=== PATIENT | male | born 1970 | race Two or more races ===

== ENCOUNTER 2017-03-02 06:00 | Inpatient (IN) | payer MEDICARE ==
[2017-03-02 06:53] VITALS: BP 123/73
[2017-03-02] MEDS ORDERED: Morphine Sulfate 2 mg/mL 1mL Syr IVP PRN ×2 (07:31→07:46)
[2017-03-02] MEDS ORDERED: Magnesium Hydroxide (MOM) 30 mL UDC PO PRN (07:41)
[2017-03-02] MEDS ORDERED: Morphine Sulfate 4 mg/mL 1mL Syr IVP PRN (07:41)
[2017-03-02] MEDS ORDERED: Maalox 30 mL Cup PO PRN (07:41)
[2017-03-02] MEDS ORDERED: Hydrocodone/APAP 10 mg/325 mg Tab PO PRN (07:41)
[2017-03-02] MEDS ORDERED: D5-0.9%NS 1,000 ML IV SCH (07:45)
[2017-03-02] MEDS: Morphine Sulfate 2 mg/mL 1mL Syr IVP PRN ×3 (08:13→20:22)
[2017-03-02 09:49] LABS: ALKALINE PHOSPHATASE 67 U/L (34-104); ANION GAP 8.1 (7.0-16.0); BILIRUBIN,TOTAL 3.1 mg/dL (0.3-1.0); BUN - UREA NITROGEN 5 mg/dL (7-25); CALCIUM SERUM 7.6 mg/dL (8.6-10.3); CARBON DIOXIDE 22.8 mEq/L (21.0-31.0); CHLORIDE 110 mEq/L (98-107); CREATININE - SERUM 0.5 mg/dL (0.7-1.3); GLUCOSE 80 mg/dL (70-105); POTASSIUM SERUM 3.9 mEq/L (3.5-5.1); SGOT 194 U/L (13-39); SGPT/ALT 47 U/L (7-52); SODIUM SERUM 137 mEq/L (136-145)
[2017-03-02 09:51] LABS: HEMATOCRIT 27.6 % (39.0-49.0); HEMOGLOBIN 9.5 gm/dL (13.2-17.3); MEAN CORPUSCULAR HEMOGLOBIN 31.8 pg (26.0-30.0); MEAN CORPUSCULAR HGB CONC 34.5 pg (28.0-36.0); PLATELET COUNT 34 Th/cmm (150-400); RED CELL DISTRIBUTION WIDTH 17.3 % (11.5-20.0)
[2017-03-02 10:00] LABS: WHITE BLOOD COUNT 1.4 Th/cmm (4.8-10.8)
[2017-03-02 11:03] LABS: BAND NEUTROPHILE 2 % (0-10); EOSINOPHIL 3 % (0-5); NEUTROPHILS 52 % (40-80); PLATELET ESTIMATE DECREASED PLATELETS (NORMAL); TOTAL CELLS COUNTED 100
[2017-03-02 13:58] LABS: INR 1.4 (0.5-1.4); PROTHROMBIN TIME (TEST) 14.9 SECONDS (9.5-11.5)
--- NOTE | 2017-03-02 14:05 | Consultation ---
DATE OF CONSULTATION: 03/02/2017 GASTROENTEROLOGY CONSULTATION REQUESTING PHYSICIAN: Frankie Garcia M.D. REASON FOR CONSULTATION: Decompensated cirrhosis and GI bleeding. HISTORY OF PRESENT ILLNESS: A 47-year-old male, who presented to [facility] ER for right upper quadrant abdominal pain. He has a history of ongoing alcoholism for the past 30 years. His pain started about 3 weeks ago. He kept drinking alcohol for his pain. At [facility] ER, he had bad behavior and was kicked out. He then took a cab to [facility] where he was evaluated and eventually admitted. He was transferred here for his admission to this facility for insurance reasons. The patient also reports 3 days of hematemesis and coffee-ground emesis as well as melena. He has a history of variceal hemorrhage in the past requiring rubber band ligation lasting about 1-2 years ago at [facility]. PAST MEDICAL HISTORY: As above. The patient has a history of fluid overload or ascites for which he takes diuretics. He also takes lactulose for possible hepatic encephalopathy. PAST MEDICAL HISTORY: As above. MEDICATIONS: Here are Tylenol p.r.n., [place] p.r.n., Maalox p.r.n., IV fluids, Benadryl p.r.n., Ativan p.r.n., morphine p.r.n., Zofran p.r.n., Protonix 40 mg IV push q.12 hours. ALLERGIES: PENICILLIN. SOCIAL HISTORY: No tobacco, no drug use, positive alcohol. FAMILY HISTORY: No alcoholism. No history of GI malignancy. REVIEW OF SYSTEMS: A comprehensive 12-point review of system was conducted and is only positive for those signs and symptoms present in history of present illness. PHYSICAL EXAMINATION: VITAL SIGNS: Temperature 97.4, blood pressure is 123/73, pulse of 89, respirations 17, O2 sat 97%. GENERAL: The patient is well-developed, young male, in no acute distress. HEENT: Sclerae nonicteric. Oropharynx is clear. CARDIOVASCULAR: Regular rate and rhythm. LUNGS: Clear to auscultation bilaterally. ABDOMEN: Soft, nontender, nondistended. EXTREMITIES: No clubbing, cyanosis or edema. RECTAL: Deferred. LABORATORY DATA AND IMAGING: WBC 1.4, hemoglobin 9.5, platelet count is 34, creatinine is 0.5, bilirubin 3.1, AST 194, ALT 47, alkaline phosphatase 67, albumin is 2.5. IMPRESSION: 1. Upper gastrointestinal bleed, rule out esophageal or gastric varices, but more likely esophagitis and gastritis and less likely peptic ulcer disease. 2. History of alcoholic cirrhosis; rule out hepatitis C. 3. 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 4. History of cholecystectomy and right inguinal hernia repair. 5. History of ongoing alcohol dependence and intoxication. RECOMMENDATIONS: 1. Protonix. 2. Consider Sandostatin. 3. Upper endoscopy likely in the next couple of days pending or availability. The patient does not appear to be actively bleeding at this point. 4. Monitor hemoglobin, transfuse as necessary. 5. Alcohol rehabilitation and cessation, strongly advised. 6. Ativan. 7. Thiamine. Thank you, Dr. Frankie Garcia for involving us in the care of your patient. If you any further questions, please call us. [facility]# [id number]
[2017-03-02] MEDS: D5-0.9%NS 1,000 ML IV SCH (16:28)
[2017-03-03] MEDS: Morphine Sulfate 2 mg/mL 1mL Syr IVP PRN ×2 (00:44→08:04)
--- NOTE | 2017-03-03 03:58 | History & Physical ---
ADMIT DATE: 03/02/2017 CHIEF COMPLAINT: Abdominal pain. HISTORY OF PRESENT ILLNESS: The patient is a 47-year-old male who presented to [facility] with complaints of upper quadrant pain with radiation for right lower quadrant. The patient states he has pain for 7 weeks. The patient admitted to drinking. The patient took a cab from another ER to [facility] because he was kicked out from prior ER for poor behavior. The patient reports black tarry stools for 3 days and then vomiting blood. PAST MEDICAL HISTORY: Liver cirrhosis stage 4, melena, hematemesis and alcohol abuse. PAST SURGICAL HISTORY: Colectomy, inguinal hernia repair. MEDICATIONS: See medication reconciliation form. ALLERGIES: PENICILLIN. SOCIAL HISTORY: Positive for alcohol use. Denies IV drug use. Denies tobacco abuse. FAMILY HISTORY: Noncontributory. REVIEW OF SYSTEMS: See history of present illness. PHYSICAL EXAMINATION: GENERAL: The patient is awake, alert, nontoxic in appearance. VITAL SIGNS: On admission, temperature 97.4, pulse 89, blood pressure 123/73, respiratory rate 17, O2 sat 97% on room air. HEENT: Normocephalic, atraumatic. Extraocular movements intact. Oropharynx is clear. No scleral icterus. NECK: Supple, no thyromegaly, no lymphadenopathy. CARDIOVASCULAR: S1, S2. No murmurs, rubs or gallops. RESPIRATORY: Clear. No wheeze or rhonchi. GASTROINTESTINAL: Soft, nontender, nondistended. Positive bowel sounds. GENITOURINARY: No CVA tenderness, no suprapubic tenderness. Rectal examination done at [facility] shows stool guaiac positive. BACK: No midline tenderness. EXTREMITIES: Equal pulses bilaterally. No significant edema. SKIN: Negative. PSYCHIATRIC: Negative. NEUROLOGIC: Intact. Sensation is intact. Neurovascular is intact. LABORATORY DATA: Hematology: WBC 1.4, hemoglobin 9.5, hematocrit 27.6, platelet count 34. Chemistry: Sodium 137, potassium 3.9, chloride 110, bicarbonate 22, anion gap 8.1, BUN 5, creatinine 0.5. GFR is more than 60, glucose is 80, calcium 7.6, total bilirubin 3.1. AST is 194, ALT 47, alkaline phosphatase 57. Total protein 5.1, albumin 2.5, globulin 2.6. MICROBIOLOGY: No new microbiology results. IMPRESSION: 1. Gastrointestinal hemorrhage. 3. Liver sclerosis stage 4. 4. Melena. 5. Hematemesis. 6. Leukopenia. 7. Anemia. 8. Thrombocytopenia. 9. Pancytopenia. 10. Hypercalcemia. 11. Alcoholic hepatitis 12. Hypoalbuminemia. 13. Protein calorie malnutrition severe. PLAN: The patient admitted to medical/surgical unit at [facility]. We will obtain GI consultation. We will obtain Hematology consultation. Obtain further labs and consultation as needed. JOB# [id number] [facility]
[2017-03-03 07:02] LABS: INR 1.5 (0.5-1.4); PROTHROMBIN TIME (TEST) 15.9 SECONDS (9.5-11.5)
[2017-03-03 07:10] LABS: ALB/GLOB RATIO 0.9 (1.0-1.8); ALKALINE PHOSPHATASE 78 U/L (34-104); ANION GAP 6.2 (7.0-16.0); BILIRUBIN,DIRECT 1.29 mg/dL (0.0-0.2); BILIRUBIN,TOTAL 3.6 mg/dL (0.3-1.0); BUN - UREA NITROGEN 7 mg/dL (7-25); CALCIUM SERUM 7.9 mg/dL (8.6-10.3); CARBON DIOXIDE 25.7 mEq/L (21.0-31.0); CHLORIDE 107 mEq/L (98-107); CREATININE - SERUM 0.5 mg/dL (0.7-1.3); GLUCOSE 77 mg/dL (70-105); LDH = LACTIC DEHYDROGENASE 367 U/L (140-271); POTASSIUM SERUM 3.9 mEq/L (3.5-5.1); SGOT 184 U/L (13-39); SGPT/ALT 46 U/L (7-52); SODIUM SERUM 135 mEq/L (136-145)
[2017-03-03 07:46] LABS: HEMOGLOBIN 9.4 gm/dL (13.2-17.3); MEAN CELL VOLUME 93.5 fl (80-99); MEAN CORPUSCULAR HEMOGLOBIN 31.3 pg (26.0-30.0); MEAN CORPUSCULAR HGB CONC 33.4 pg (28.0-36.0); MEAN PLATELET VOLUME 9.3 fl; PLATELET COUNT 31 Th/cmm (150-400); RED BLOOD COUNT 2.99 Mil/cmm (4.30-5.70); RED CELL DISTRIBUTION WIDTH 16.8 % (11.5-20.0)
[2017-03-03 08:24] LABS: WHITE BLOOD COUNT 1.1 Th/cmm (4.8-10.8)
[2017-03-03 09:35] LABS: RBC RETICULOCYTE COUNT 2.99 Mil/cmm; RETICULOCYTES % COUNTED 1.5 % (0.5-1.5)
[2017-03-03] MEDS ORDERED: Morphine Sulfate 2 mg/mL 1mL Syr IVP ONE (10:15)
[2017-03-03] MEDS: Morphine Sulfate 4 mg/mL 1mL Syr IVP PRN ×3 (14:17→23:47)
[2017-03-04] MEDS: Morphine Sulfate 4 mg/mL 1mL Syr IVP PRN ×5 (04:31→21:06)
[2017-03-04 05:41] LABS: INR 1.52 (0.5-1.4); PROTHROMBIN TIME (TEST) 16.1 SECONDS (9.5-11.5)
[2017-03-04 05:45] LABS: ALKALINE PHOSPHATASE 79 U/L (34-104); ANION GAP 6.6 (7.0-16.0); BUN - UREA NITROGEN 7 mg/dL (7-25); CALCIUM SERUM 8.3 mg/dL (8.6-10.3); CARBON DIOXIDE 23.6 mEq/L (21.0-31.0); CHLORIDE 106 mEq/L (98-107); CREATININE - SERUM 0.5 mg/dL (0.7-1.3); GLUCOSE 68 mg/dL (70-105); POTASSIUM SERUM 4.2 mEq/L (3.5-5.1); SGOT 157 U/L (13-39); SGPT/ALT 42 U/L (7-52); SODIUM SERUM 132 mEq/L (136-145)
--- NOTE | 2017-03-04 05:52 | Progress Notes ---
DATE: 03/03/2017 SUBJECTIVE: The patient is awake and alert. The patient is on IV fluids. He still complaints of pain in the right upper quadrant and right lower quadrant area. The patient is scheduled for EGD tomorrow. OBJECTIVE: VITAL SIGNS: Temperature is 98.7, pulse of 76, blood pressure 162/70, respiratory rate 16 and O2 sat 98% on room. CARDIOVASCULAR: S1 and S2. RESPIRATORY: Clear. ABDOMEN: Soft, tender in the right upper quadrant and right lower quadrant area, nondistended, positive bowel sounds. LABORATORY DATA: Hematology: WBC 1.1, hemoglobin 9.4, hematocrit 28.0 and platelet count of 31, no left shift noted. PT 13.9, INR 1.5 and PTT 36.9. Chemistry: Sodium 135, potassium 3.9, chloride 107, bicarbonate 22, anion gap 6.2, BUN 7, creatinine 0.5, GFR is more than 60 and glucose is 77. Calcium is 7.9. Total bilirubin is 3.6, direct bilirubin is 0.29, AST is 184, ALT is 46, alkaline phosphatase is 78. LDH is 367, total protein is 5.1, albumin 2.4, globulin 2.7. MICROBIOLOGY: No new microbiology results. RADIOLOGY: No new radiology results. ASSESSMENT: 1. Leukopenia. 2. Anemia. 3. Thrombocytopenia. 4. Pancytopenia. 5. Hyponatremia. 6. Hypercalcemia. 7. Alcohol hepatitis. 8. Transaminitis. 9. Hyperlipidemia. 10. Protein-calorie malnutrition, severe. 11. Liver cirrhosis, stage 4. 12. Alcohol abuse. 13. Status post cholecystectomy. 14. Status post inguinal hernia repair. 15. Hematemesis. 16. Melena. 17. Gastrointestinal bleed. PLAN: Continue current medication and treatment. Obtain labs in a.m. The patient is scheduled for EGD in a.m. Further consult. JOB# [id number] [facility]
[2017-03-04 05:59] LABS: LIPASE < 3 U/L (11-82)
[2017-03-04 06:58] LABS: HEMOGLOBIN 9.7 gm/dL (13.2-17.3); MEAN CELL VOLUME 94.8 fl (80-99); MEAN CORPUSCULAR HEMOGLOBIN 31.7 pg (26.0-30.0); MEAN CORPUSCULAR HGB CONC 33.5 pg (28.0-36.0); NEUTROPHILE ABSOLUTE 0.6 Th/cmm (1.8-8.0); PLATELET COUNT 39 Th/cmm (150-400); RED BLOOD COUNT 3.06 Mil/cmm (4.30-5.70); RED CELL DISTRIBUTION WIDTH 17.5 % (11.5-20.0)
[2017-03-04 07:01] LABS: WHITE BLOOD COUNT 1.2 Th/cmm (4.8-10.8)
[2017-03-04] MEDS: D5-0.9%NS 1,000 ML IV SCH ×2 (12:14→12:35)
--- NOTE | 2017-03-04 12:47 | Diagnostic Imaging Report ---
Abdominal ultrasound HISTORY: Cirrhosis The liver exhibits a normal size. There is a somewhat heterogeneous hepatic parenchyma. No focal lesions. The finding should be correlated with liver function tests. The gallbladder is not seen consistent with the patient's surgical history. No biliary dilatation (common bile duct equals 3 mm). The pancreas cannot be seen due to bowel gas. The kidneys appear normal bilaterally. The spleen is markedly enlarged (21.0 cm length). No other definite retroperitoneal or intra-abdominal abnormalities. IMPRESSION: 1. Marked splenomegaly 2. Normal size liver with a heterogeneous parenchyma. The findings should be correlated with liver function tests. 3. Nonvisualization of the gallbladder consistent with the patient's surgical history.
[2017-03-05] MEDS: Morphine Sulfate 4 mg/mL 1mL Syr IVP PRN ×2 (01:35→05:59)
[2017-03-05] MEDS: D5-0.9%NS 1,000 ML IV SCH ×2 (01:37→23:36)
--- NOTE | 2017-03-05 02:11 | Progress Notes ---
DATE: 03/04/2017 SUBJECTIVE: The patient is awake, alert. The patient received transfusion ____. The patient waiting EGD today. OBJECTIVE: VITAL SIGNS: Temperature is 97.8, pulse 70, blood pressure 120/75, respirations 18, O2 sat 100% on room air. CARDIOVASCULAR: S1 and S2 is clear. ABDOMEN: Soft. Positive bowel sounds. LABORATORY DATA: Hematology: WBC of 1.2, hemoglobin 9.7, hematocrit 28.0, platelet count of 39. No left shift noted. PT 16.1, INR 1.52. Chemistry: Sodium 132, potassium 4.2, chloride 106, bicarb 23, anion of 6.6, BUN 7, creatinine 0.5. GFR is 160, glucose is 68, calcium 8.3, total bilirubin 4.0, AST is 157, ALT is 42, alkaline phosphatase 79, total protein 5.3, albumin 2.6, globulin 2.7 and lipase less than 3. RADIOLOGY: No new test results. ASSESSMENT: 1. Leukopenia. 2. Anemia. 3. Thrombocytopenia. 4. Pancytopenia. 5. Hyponatremia. 6. Hypercalcemia. 7. Alcoholic hepatitis. 8. Hypoalbuminemia. 9. ____ disease, [id number]. 10. Transaminitis. 11. Liver cirrhosis stage IV. 12. History of alcohol abuse. 13. Status post cholecystectomy. 14. Status post inguinal hernia repair. 15. Hematemesis, (resolved). 16. Melena, (resolved). 17. Gastrointestinal bleed. PLAN: Continue current medication and treatment. Obtain labs in a.m. The patient planned for EGD today. Further consult. JOB# [id number]
[2017-03-05 04:12] LABS: HEP B CORE IGM Negative (Negative); HEP C ANTIBODY 0.1 s/co ratio (0.0-0.9)
[2017-03-05 06:08] LABS: FOLIC ACID 10.3 ng/mL (>3.0)
[2017-03-05 07:02] LABS: HEMATOCRIT 27.4 % (39.0-49.0); HEMOGLOBIN 9.3 gm/dL (13.2-17.3); MEAN CELL VOLUME 92.1 fl (80-99); MEAN CORPUSCULAR HEMOGLOBIN 31.3 pg (26.0-30.0); MEAN PLATELET VOLUME 8.9 fl; PLATELET COUNT 32 Th/cmm (150-400); RED BLOOD COUNT 2.98 Mil/cmm (4.30-5.70); RED CELL DISTRIBUTION WIDTH 16.9 % (11.5-20.0)
[2017-03-05 07:19] LABS: ALKALINE PHOSPHATASE 86 U/L (34-104); ANION GAP 7.3 (7.0-16.0); BILIRUBIN,TOTAL 2.4 mg/dL (0.3-1.0); BUN - UREA NITROGEN 9 mg/dL (7-25); CALCIUM SERUM 8.1 mg/dL (8.6-10.3); CARBON DIOXIDE 22.7 mEq/L (21.0-31.0); CHLORIDE 109 mEq/L (98-107); CREATININE - SERUM 0.5 mg/dL (0.7-1.3); GLUCOSE 91 mg/dL (70-105); SGOT 117 U/L (13-39); SGPT/ALT 37 U/L (7-52); SODIUM SERUM 135 mEq/L (136-145)
[2017-03-05 08:16] LABS: WHITE BLOOD COUNT 0.9 Th/cmm (4.8-10.8)
[2017-03-05 09:14] LABS: HEMATOCRIT 27.4 % (33.0-45.0); RBC RETICULOCYTE COUNT 2.98 Mil/cmm; RETICULOCYTES % COUNTED 0.8 % (0.5-1.5)
[2017-03-05] MEDS: Morphine Sulfate 2 mg/mL 1mL Syr IVP PRN ×3 (14:06→22:10)
[2017-03-06] MEDS: Morphine Sulfate 2 mg/mL 1mL Syr IVP PRN ×3 (02:55→20:39)
--- NOTE | 2017-03-06 03:43 | Admit Criteria Form ---
Admit Criteria Forms - Admit Criteria Diagnosis: GASTROINTESTINAL BLEEDING Clinical Indications for Inpatient Care (Place 'X' for any and all applicable criteria): Ongoing inpatient care may be indicated for gastrointestinal bleeding with ANY ONE of the following (4)(20)(21)(22)(23)(24): [ ]I. Active bleeding (eg, fresh voluminous blood in emesis or nasogastric aspirate, or per rectum) [ ]II. Hemodynamic instability [ ]III. Anticoagulation therapy or coagulopathy ((eg, advanced liver disease, irreversible anticoagulation) [ ]IV. Ischemic colitis (22) [ ]V. Endoscopy showing arterial bleeding, adherent clot, nonbleeding visible vessel, varices, flat red spots, ulcer size greater than 2 cm, or portal hypertensive gastropathy [ ]. High-risk low platelet count [ ]VII. Anemia requiring inpatient care as indicated by ANY ONE of the following a)[ ] Cognitive impairment b)[ ] Syncope c)[ ] Heart failure d)[ ] Chest pain e)[ ] Dyspnea f)[ ] Other findings suggesting inadequate perfusion (eg, peripheral or myocardial ischemia, end organ dysfunction) [ ]VIII. High-risk low platelet count [X ]IX. Suspected variceal cause of bleeding as indicated by ANY ONE of the following(27)(28): a)[ ] Known varices b)[X ] Hepatomegaly or splenomegaly c)[ ] Ascites d)[ ] Jaundice or scleral icterus e)[X ] History of liver disease (eg, cirrhosis) f)[ ] Physical findings of portal hypertension (eg, caput medusa) g)[ ] Comorbid disorder indicating risk for portal vein thrombosis (eg , abdominal surgery, sepsis, shock, exchange transfusion, prior umbilical vein catheterization) Extended stay may be needed until ALL of the following are present(20)(23)(47): [ ]a) Hemodynamic stability [ ]b) No evidence of active bleeding (eg, stable Hematocrit) [ ]c) Platelet count, prothrombin time, and partial thromboplastin time acceptable for next level of care [ ]d) Surgical or other acute intervention not needed [ ]e) Oral hydration and diet tolerated The original [employer] [facility] [facility] [employer] content created by [employer] has been revised. The portions of the content which have been revised are identified through the use of italic text or in bold, and [facility] has neither reviewed nor approved the modified material. All other unmodified content is copyright [facility]. Please see references footnoted in the original [facility] edition 2016 Admit Criteria Met?: Yes
[2017-03-06 07:11] LABS: RED BLOOD COUNT 2.92 Mil/cmm (4.30-5.70)
[2017-03-06 07:20] LABS: HEMATOCRIT 27.3 % (39.0-49.0); HEMOGLOBIN 9.2 gm/dL (13.2-17.3); MEAN CELL VOLUME 93.7 fl (80-99); MEAN CORPUSCULAR HEMOGLOBIN 31.4 pg (26.0-30.0); MEAN CORPUSCULAR HGB CONC 33.5 pg (28.0-36.0); MEAN PLATELET VOLUME 8.7 fl; PLATELET COUNT 36 Th/cmm (150-400); RED CELL DISTRIBUTION WIDTH 17.5 % (11.5-20.0)
[2017-03-06 07:26] LABS: INR 1.59 (0.5-1.4); PROTHROMBIN TIME (TEST) 16.9 SECONDS (9.5-11.5)
[2017-03-06 07:39] LABS: ALB/GLOB RATIO 0.9 (1.0-1.8); ALKALINE PHOSPHATASE 74 U/L (34-104); ANION GAP 6.8 (7.0-16.0); BILIRUBIN,DIRECT 0.96 mg/dL (0.0-0.2); BILIRUBIN,TOTAL 2.6 mg/dL (0.3-1.0); BUN - UREA NITROGEN 6 mg/dL (7-25); CALCIUM SERUM 8.2 mg/dL (8.6-10.3); CARBON DIOXIDE 21.9 mEq/L (21.0-31.0); CHLORIDE 111 mEq/L (98-107); CREATININE - SERUM 0.4 mg/dL (0.7-1.3); GLUCOSE 93 mg/dL (70-105); POTASSIUM SERUM 3.7 mEq/L (3.5-5.1); SGOT 93 U/L (13-39); SGPT/ALT 32 U/L (7-52); SODIUM SERUM 136 mEq/L (136-145)
[2017-03-06] MEDS ORDERED: Probiotic Screen MC PRN (09:19)
[2017-03-06 09:40] LABS: NEUTROPHILS 46 % (40-80)
[2017-03-06 09:41] LABS: EOSINOPHIL 9 % (0-5); PLATELET ESTIMATE DECREASED PLATELETS (NORMAL)
[2017-03-06] MEDS: D5-0.9%NS 1,000 ML IV SCH ×3 (10:32→20:39)
[2017-03-07] MEDS: Morphine Sulfate 4 mg/mL 1mL Syr IVP PRN ×3 (00:52→09:12)
[2017-03-07 05:51] LABS: HEMATOCRIT 27.1 % (39.0-49.0); HEMOGLOBIN 9.2 gm/dL (13.2-17.3); MEAN CELL VOLUME 93.2 fl (80-99); MEAN CORPUSCULAR HEMOGLOBIN 31.7 pg (26.0-30.0); MEAN PLATELET VOLUME 7.8 fl; RED BLOOD COUNT 2.91 Mil/cmm (4.30-5.70)
[2017-03-07 06:14] LABS: WHITE BLOOD COUNT 1.3 Th/cmm (4.8-10.8)
[2017-03-07 06:22] LABS: ALB/GLOB RATIO 0.9 (1.0-1.8); ALKALINE PHOSPHATASE 77 U/L (34-104); ANION GAP 6.2 (7.0-16.0); BILIRUBIN,TOTAL 3.1 mg/dL (0.3-1.0); BUN - UREA NITROGEN 5 mg/dL (7-25); CARBON DIOXIDE 23.3 mEq/L (21.0-31.0); CHLORIDE 111 mEq/L (98-107); CREATININE - SERUM 0.5 mg/dL (0.7-1.3); GLUCOSE 83 mg/dL (70-105); POTASSIUM SERUM 3.5 mEq/L (3.5-5.1); SGOT 82 U/L (13-39); SGPT/ALT 32 U/L (7-52); SODIUM SERUM 137 mEq/L (136-145)
--- NOTE | 2017-03-07 07:44 | Progress Notes ---
DATE: 03/05/2017 SUBJECTIVE: The patient is awake, alert. The patient is on IV fluids. OBJECTIVE: VITAL SIGNS: Temperature is 97, pulse 86, blood pressure 130/70, respirations 18, pulse ox 98% on room air. CARDIOVASCULAR: S1 and S2. RESPIRATORY: Clear. GASTROINTESTINAL: Abdomen is soft. Positive bowel sounds. LABORATORY DATA: Hematology: WBC is 0.9, hemoglobin is 9.3, hematocrit 27.4, platelet count of 232. Chemistry: Sodium 135, potassium ____, bicarbonate 22, anion gap 7.3, BUN 9, creatinine 0.5. GFR is more than 60, glucose is 91, calcium 8.1, total bilirubin 2.4. AST is 117, ALT 37, alkaline phosphatase 86. Total protein 4.9, albumin 2.4, globulin 2.5. AFP tumor marker 2.2, CA 5.6. ASSESSMENT: 1. Leukopenia. 2. Anemia. 3. Thrombocytopenia. 4. Pancytopenia. 5. Alcoholic hepatitis. 6. Protein-calorie malnutrition, owiruexb-[id number]. 7. Transaminitis. 8. Liver cirrhosis, stage 4. 9. History of alcohol abuse. 10. Status post cholecystectomy. 11. Status post inguinal hernia repair. 12. Hematemesis, resolved. 13. Melena, resolved. 14. Gastrointestinal bleed. 15. Portal hypertension. 16. Possible alcoholic ____. PLAN: EGD on hold. Recommendation from Hematology, the patient may require bone marrow biopsy. The patient ____ decreased density of liver. Thank you very much. JOB# [id number]
[2017-03-07 08:08] LABS: EOSINOPHIL 7 % (0-5); NEUTROPHILS 67 % (40-80); TOTAL CELLS COUNTED 100
[2017-03-07 08:09] LABS: PLATELET ESTIMATE DECREASED PLATELETS (NORMAL)
[2017-03-07] MEDS: D5-0.9%NS 1,000 ML IV SCH (09:13)
[2017-03-07] MEDS: Lactobacillus Rhamnosus 10 Billion CFU Capsule PO SCH (09:13)
--- NOTE | 2017-03-07 11:02 | Progress Notes ---
DATE: 03/06/2017 SUBJECTIVE: The patient is awake, alert. The patient's EGD is on hold due to pancytopenia. The patient ordered for CT-guided biopsy regarding possible occult neurotoxicity. OBJECTIVE: VITAL SIGNS: Temperature 97.6, pulse 73, blood pressure 149/76, respiratory rate 18, O2 sat 98% on room air. CARDIOVASCULAR: S1 and S2. RESPIRATORY: Clear. GASTROINTESTINAL: Soft. Positive bowel sounds. LABORATORY DATA: Hematology: WBC 1.0, hemoglobin 9.2, hematocrit 27.3, platelet count 36. PT 16.9, INR 1.59, PTT 37.4. Chemistries: Sodium 136, potassium 3.7, chloride 111, bicarbonate 21, anion gap 6.8, BUN 6, creatinine 0.4, GFR is more than 60, glucose 93, calcium 8.2, total bilirubin 2.6, direct bilirubin 0.96. AST 93, ALT 32, alkaline phosphatase 74, total protein 4.7, albumin 2.2, globulin 2.5. ASSESSMENT: 1. Leukopenia. 2. Anemia. 3. Thrombocytopenia. 4. Pancytopenia. 5. Hypocalcemia. 6. Alcoholic hepatitis. 7. Transaminitis. 8. Hypoalbuminemia. 9. Protein calorie malnutrition, severe. 10. Liver cirrhosis stage IV. 11. History of alcohol abuse. 12. Status post ____ inguinal hernia repair. 13. Hematemesis, resolved. 14. Melena, (resolved). 15. Gastrointestinal bleed. 16. Possible occult neurotoxicity. PLAN: Continue current medication and treatment. Obtain labs in a.m. Awaiting CT-guided biopsy results. Further consults. The patient will also require EGD. JOB# [id number]
[2017-03-07] MEDS: Morphine Sulfate 2 mg/mL 1mL Syr IVP PRN ×3 (13:09→22:05)
[2017-03-07 20:02] LABS: PLATELET COUNT 31 Th/cmm (150-400)
[2017-03-07] MEDS ORDERED: Lactulose 10 Gm/15 mL 30mL UDC PO PRN (20:46)
[2017-03-08] MEDS: Morphine Sulfate 2 mg/mL 1mL Syr IVP PRN (02:06)
[2017-03-08 05:44] LABS: HEMOGLOBIN 9.1 gm/dL (13.2-17.3); MEAN CELL VOLUME 92.8 fl (80-99); MEAN CORPUSCULAR HEMOGLOBIN 31.2 pg (26.0-30.0); MEAN CORPUSCULAR HGB CONC 33.7 pg (28.0-36.0); MEAN PLATELET VOLUME 8.6 fl; RED BLOOD COUNT 2.91 Mil/cmm (4.30-5.70); RED CELL DISTRIBUTION WIDTH 17.8 % (11.5-20.0)
[2017-03-08 06:07] LABS: ALB/GLOB RATIO 0.9 (1.0-1.8); ALKALINE PHOSPHATASE 74 U/L (34-104); BILIRUBIN,TOTAL 2.6 mg/dL (0.3-1.0); BUN - UREA NITROGEN 6 mg/dL (7-25); CALCIUM SERUM 7.9 mg/dL (8.6-10.3); CARBON DIOXIDE 23.8 mEq/L (21.0-31.0); CHLORIDE 112 mEq/L (98-107); CREATININE - SERUM 0.5 mg/dL (0.7-1.3); GLUCOSE 95 mg/dL (70-105); POTASSIUM SERUM 3.8 mEq/L (3.5-5.1); SGOT 72 U/L (13-39); SGPT/ALT 29 U/L (7-52); SODIUM SERUM 137 mEq/L (136-145)
[2017-03-08] MEDS: Morphine Sulfate 4 mg/mL 1mL Syr IVP PRN (06:31)
[2017-03-08] MEDS: D5-0.9%NS 1,000 ML IV SCH (06:32)
[2017-03-08 06:33] LABS: PLATELET COUNT 30 Th/cmm (150-400); WHITE BLOOD COUNT 1.3 Th/cmm (4.8-10.8)
[2017-03-08] MEDS: Lactobacillus Rhamnosus 10 Billion CFU Capsule PO SCH (08:37)
[2017-03-08 09:06] LABS: EOSINOPHIL 6 % (0-5); NEUTROPHILS 58 % (40-80); TOTAL CELLS COUNTED 100
[2017-03-08 09:07] LABS: PLATELET ESTIMATE DECREASED PLATELETS (NORMAL); PLATELET MORPHOLOGY NORMAL (NORMAL)
--- NOTE | 2017-03-08 20:15 | Progress Notes ---
DATE: 03/07/2017 SUBJECTIVE: The patient is awake, alert. The patient is on IV fluids. The patient is on IVP medication. Unable to view CT-guided bone marrow biopsy. OBJECTIVE: VITAL SIGNS: Temperature is 98.4, pulse of 84, blood pressure 138/86, respiratory rate 18 and O2 sat 98% on room. CARDIOVASCULAR: S1 and S2. RESPIRATORY: Clear. ABDOMEN: Soft, positive bowel sounds. LABORATORY DATA: Hematology: WBC 1.3, hemoglobin 9.2, hematocrit 27.1 and platelet count unknown. Chemistry: Sodium 137, potassium 3.5, chloride ____, bicarbonate 23.3, anion gap 6.2, BUN 5, creatinine 0.5, GFR is more than 60. Calcium is 8.0. Total bilirubin is 3.1. AST is 82, ALT is 32, alkaline phosphatase 77, total protein is 5.0, albumin 2.4, globulin 2.6. MICROBIOLOGY: No new microbiology results. ASSESSMENT: 1. Leukopenia. 2. Anemia. 3. Thrombocytopenia. 4. Pancytopenia. 5. Hypercalcemia. 6. Alcoholic hepatitis. 7. Transaminitis. 8. Hypoalbuminemia. 9. Protein-calorie malnutrition (jvlrzqar-aq-saspoa). 10. Liver cirrhosis, stage 4. 11. Alcohol abuse. 12. Status post inguinal hernia repair. 13. Hematemesis, resolved. 14. Melena, resolved. 15. Gastrointestinal bleed. 16. Possible alcoholic marrow toxicity. 17. Portal hypertension. PLAN: Continue current medication and treatment. Obtain labs in a.m. The patient will require CT-guided bone marrow biopsy. The patient will also require EGD. salary manager to arrange for transfer to ____ facility. JOB# [id number]
--- NOTE | 2017-03-09 04:49 | Progress Notes ---
DATE: 03/08/2017 SUBJECTIVE: The patient is awake, alert. Dull pain. The patient is on IV fluids. OBJECTIVE: VITAL SIGNS: Temperature is 97.9, pulse 77, blood pressure 124/78, respirations 19, O2 sat 96% on room air. CARDIOVASCULAR: S1 and S2. RESPIRATORY: Clear. GASTROINTESTINAL: Abdomen is soft. Positive bowel sounds. LABORATORY DATA: Hematology: WBC is 1.3, hemoglobin is 9.1, hematocrit 27.1, platelet count of 230. Chemistry: Sodium 137, potassium 3.8, chloride 112, bicarbonate 23, anion gap 5, BUN 6, creatinine 0.3. GFR is more than 60, glucose is 95, calcium 7.9, total bilirubin 2.6. AST is 72, ALT 29, alkaline phosphatase 74, amylase 88. Total protein 4.8, albumin 2.2, globulin 2.6. MICROBIOLOGY: No new microbiology results. ASSESSMENT: 1. Leukopenia. 2. Anemia. 3. Thrombocytopenia. 4. Pancytopenia. 5. Hypercalcemia. 6. Transaminitis. 7. Hypoalbuminemia. 8. Protein-calorie malnutrition, severe. 9. Liver cirrhosis, stage 4. 10. Alcohol abuse. 11. Status post inguinal hernia repair. 12. Hematemesis, resolved. 13. Melena, resolved. 14. History of gastrointestinal bleed. 15. Possible alcoholic marrow toxicity. PLAN: Continue current medication and treatment. ____ planning. Per discussion with Hematology and Oncology, the patient can be discharged and follow up as outpatient. JOB# [id number]
== END 2017-03-08 10:30 | disposition home or self-care (01) | DRG 377 ==
LOC: MSI 06:00
PROVIDERS: ADMIT Preventive Medicine Preventive Medicine/Occupational Environmental Medicine; ATTEND Preventive Medicine Preventive Medicine/Occupational Environmental Medicine
PROC: 30233R1 Transfusion of Nonautologous Platelets into Peripheral Vein, Percutaneous Approach (ICD-10-PCS; principal; 2017-03-03)
DX: K92.2 Gastrointestinal hemorrhage, unspecified (principal); E43 Unspecified severe protein-calorie malnutrition; D61.818 Other pancytopenia; E87.0 Hyperosmolality and hypernatremia; K76.6 Portal hypertension; E88.09 Other disorders of plasma-protein metabolism, not elsewhere classified; E83.52 Hypercalcemia; K70.10 Alcoholic hepatitis without ascites; K74.1 Hepatic sclerosis; D72.819 Decreased white blood cell count, unspecified; D64.9 Anemia, unspecified; F10.20 Alcohol dependence, uncomplicated; K74.60 Unspecified cirrhosis of liver; D72.829 Elevated white blood cell count, unspecified; R74.0 Nonspecific elevation of levels of transaminase and lactic acid dehydrogenase [LDH]; Z68.28 Body mass index [BMI] 28.0-28.9, adult; Z88.0 Allergy status to penicillin; Z90.49 Acquired absence of other specified parts of digestive tract; Z71.41 Alcohol abuse counseling and surveillance of alcoholic
CPT/HCPCS: 36415-UA; 76700-TC; 80053-TC; 80074-90; 82105-90; 82140-TC; 82248-TC; 82378-90; 82607-90; 82728-90; 82746-90; 83010-90; 83540-90; 83550-90; 83615-TC; 83690-TC; 85007-TC; 85025-TC; 85027-TC; 85044-TC; 85049-TC; 85379-TC; 85384-TC; 85610-TC; 85730-TC; 86301-90; 86850-TC; 86880-TC; 86900-TC; 86901-TC; 88305-90; 93005; C9113; J1200; J2270; J3430; J7042; P9035

== ENCOUNTER 2017-09-20 15:15 | Emergency (ER) | payer MEDICARE, MEDICAID ==
--- NOTE | 2017-09-20 15:49 | ED Physician Chart ---
ED Chief Complaint/HPI - Patient Information Date Seen:: 09/20/17 Time Seen:: 15:48 Chief Complaint:: RUQ abdominal pain and dizziness History of Present Illness:: 47 yo male had sudden onset of RUQ sharp abdominal pain and dizziness 2 hours ago. It was constant, stabbing pain, worsened by deep breathing. No nausea or vomiting. Patient had liver cirrhosis, stage IV, secondary to alcohol ingestion. Last drank beer 3 hours ago. Allergies:: Allergies Allergy/AdvReac Type Severity Reaction Status Date / Time Penicillins Allergy Unknown HIVES Verified 03/02/17 06:53 Vitals:: Vital Signs - 8 hr 09/20/17 15:15 Temp 98.2 F HR 96 RR 19 BP 122/44 O2 Sat % 99 ED Review of Systems - Review of Systems General/Constitutional: No fever Skin: Skin lesions Head: No headache Eyes: No pain ENT: No nasal drainage Neck: No neck pain Cardio Vascular: Chest pain Pulmonary: No SOB GI: No nausea, No vomiting, Pain (RUQ pain) Musculoskeletal: No bone or joint pain Neurological: No focal symptoms, Dizziness ED Past Medical History - Past Medical History Past Medical History: Other (cirrhosis) Social History: Non Smoker, Alcohol, No Drug Use Surgical History: Cholecystectomy, Hernia (Right inguinal hernia repair) Family Medical History - Family Member Mother History Unknown: Yes ED Physical Exam - Physical Examination General/Constitutional: Awake, Alert Head: Atraumatic Eyes: PERRL ENMT: Nasal exam nl Neck: No nuchal rigidity Respiratory: Clear to Auscultation, No Wheeze/Rhonchi/Rales Cardio Vascular: RRR, No murmur, gallop, rubs, NL S1 S2 Other GI comments:: RUQ tenderness, RLQ tenderness. Left flank and abdomen ecchymosis Other comments:: Right CVA tenderness Extremities: normal strength in all extremities Neuro/Psych: No focal deficits ED Labs/Radiology/EKG Results - Lab Results Results: Laboratory Last Values WBC 2.3 Th/cmm (4.8-10.8) L* 09/20/17 16:20 RBC 3.56 Mil/cmm (4.30-5.70) L 09/20/17 16:20 Hgb 10.1 gm/dL (12-16) L 09/20/17 16:20 Hct 31.0 % (41.0-60) L 09/20/17 16:20 MCV 86.9 fl (80-99) 09/20/17 16:20 MCH 28.3 pg (26.0-30.0) 09/20/17 16:20 MCHC Differential 32.6 pg (28.0-36.0) 09/20/17 16:20 RDW 18.7 % (11.5-20.0) 09/20/17 16:20 Plt Count 59 Th/cmm (150-400) L 09/20/17 16:20 MPV 7.1 fl 09/20/17 16:20 Neutrophils % 65.2 % (40.0-80.0) 09/20/17 16:20 Lymphocytes % 21.8 % (20.0-50.0) 09/20/17 16:20 Monocytes % 9.0 % (2.0-10.0) 09/20/17 16:20 Eosinophils % 4.0 % (0.0-5.0) 09/20/17 16:20 Basophils % 0.0 % (0.0-2.0) 09/20/17 16:20 PT 16.1 SECONDS (9.5-11.5) H 09/20/17 16:20 INR 1.52 (0.5-1.4) H 09/20/17 16:20 PTT (Actin FS) 37.0 SECONDS (26.0-38.0) 09/20/17 16:20 D-Dimer 133 ng/mL (100-400) 09/20/17 16:20 Sodium 141 mEq/L (136-145) 09/20/17 16:20 Potassium 3.6 mEq/L (3.5-5.1) 09/20/17 16:20 Chloride 113 mEq/L (98-107) H 09/20/17 16:20 Carbon Dioxide 18.4 mEq/L (21.0-31.0) L 09/20/17 16:20 Anion Gap 13.2 (7.0-16.0) 09/20/17 16:20 BUN 10 mg/dL (7-25) 09/20/17 16:20 Creatinine 0.5 mg/dL (0.7-1.3) L 09/20/17 16:20 Est GFR ( Amer) > 60.0 ml/min (>90) 09/20/17 16:20 Est GFR (Non-Af Amer) > 60.0 ml/min 09/20/17 16:20 BUN/Creatinine Ratio 20.0 09/20/17 16:20 Glucose 82 mg/dL (70-105) 09/20/17 16:20 Whole Bld Lactic Acid 2.00 mmol/L (0.60-1.99) H 09/20/17 18:40 Calcium 8.6 mg/dL (8.6-10.3) 09/20/17 16:20 Total Bilirubin 3.3 mg/dL (0.3-1.0) H 09/20/17 16:20 AST 94 U/L (13-39) H 09/20/17 16:20 ALT 41 U/L (7-52) 09/20/17 16:20 Alkaline Phosphatase 83 U/L (34-104) 09/20/17 16:20 Ammonia 68 umol/L (16-53) H 09/20/17 16:20 Total Protein 5.3 gm/dL (6.0-8.3) L 09/20/17 16:20 Albumin 2.8 gm/dL (4.2-5.5) L 09/20/17 16:20 Globulin 2.5 gm/dL 09/20/17 16:20 Albumin/Globulin Ratio 1.1 (1.0-1.8) 09/20/17 16:20 Amylase 103 U/L (29-103) 09/20/17 16:20 Lipase 11 U/L (11-82) 09/20/17 16:20 Urine Source RANDOM 09/20/17 18:00 Urine Color YELLOW 09/20/17 18:00 Urine Clarity CLEAR (CLEAR) 09/20/17 18:00 Urine pH 5.5 (4.6 - 8.0) 09/20/17 18:00 Ur Specific [facility] >= 1.030 (1.005-1.030) 09/20/17 18:00 Urine Protein 30 mg/dL (NEGATIVE) H 09/20/17 18:00 Urine Glucose (UA) NEGATIVE mg/dL (NEGATIVE) 09/20/17 18:00 Urine Ketones TRACE mg/dL (NEGATIVE) 09/20/17 18:00 Urine Blood MODERATE (NEGATIVE) H 09/20/17 18:00 Urine Nitrate NEGATIVE (NEGATIVE) 09/20/17 18:00 Urine Bilirubin SMALL (NEGATIVE) H 09/20/17 18:00 Urine Urobilinogen 1.0 E.U./dL (0.2 - 1.0) 09/20/17 18:00 Ur Leukocyte Esterase NEGATIVE (NEGATIVE) 09/20/17 18:00 Urine RBC 5-10 /hpf (0-5) H 09/20/17 18:00 Urine WBC NONE SEEN /hpf (0-5) 09/20/17 18:00 Ur Epithelial Cells NONE SEEN /lpf (FEW) 09/20/17 18:00 Urine Bacteria NONE SEEN /hpf (NONE SEEN) 09/20/17 18:00 Urine Opiates Screen NEGATIVE (NEGATIVE) 09/20/17 18:00 Urine Methadone Screen NEGATIVE (NEGATIVE) 09/20/17 18:00 Ur Barbiturates Screen NEGATIVE (NEGATIVE) 09/20/17 18:00 Ur Tricyclics Screen NEGATIVE (NEGATIVE) 09/20/17 18:00 Ur Phencyclidine Scrn NEGATIVE (NEGATIVE) 09/20/17 18:00 Amphetamines Screen NEGATIVE (NEGATIVE) 09/20/17 18:00 U Methamphetamines Scrn NEGATIVE (NEGATIVE) 09/20/17 18:00 U Benzodiazepines Scrn POSITIVE (NEGATIVE) H 09/20/17 18:00 U Cocaine Metab Screen NEGATIVE (NEGATIVE) 09/20/17 18:00 U Cannabinoids Screen POSITIVE (NEGATIVE) H 09/20/17 18:00 Ethyl Alcohol 281 mg/dL (0-10) H 09/20/17 16:20 - Radiology Results Results: CXR: Right basal atelectasis CT abdomen: large mass in mediastinum and retroperitoneum ED Assessment - Assessment General Assessment: Large mediastinal and retroperitoneal masses Leukopenia Liver cirrhosis Anemia of chronic disease Coagulopathy Substance abuse Assessment/Comments:: CBC, CMP, PT/PTT UA, urine drug screen Levaquin IV NS IV Pantoprazole PO Zofran IV Spoke with protection consultant physician Dr. Mirza who instructed that the patient would be discharged and would follow up with Dr. Mirza outpatient in 2 days on Friday. ED Septic Shock - . Is Septic Shock (SBP<90, OR Lactate>4 mmol\L) present?: No - <6hrs of presentation: Vital Signs: Vital Signs - 8 hr 09/20/17 15:15 Temp 98.2 F HR 96 RR 19 BP 122/44 O2 Sat % 99 ED Reassessment (Disposition) - Reassessment Reassessment Condition:: Improved - Patient Disposition Discharge/Transfer:: Home ED Discharge Plan - Patient Disposition Admit/Discharge/Transfer: PT DISCHARGED HOME Instructions: Hepatomegaly, [id number], Cirrhosis, Lymphadenopathy
[2017-09-20] MEDS ORDERED: Pantoprazole 40 mg EC Tab PO STA (16:12)
[2017-09-20] MEDS ORDERED: Pantoprazole 40 mg EC Tab PO ONE (16:17)
[2017-09-20 16:37] LABS: PLATELET COUNT 59 Th/cmm (150-400)
[2017-09-20 16:42] LABS: HEMOGLOBIN 10.1 gm/dL (12-16); RED BLOOD COUNT 3.56 Mil/cmm (4.30-5.70)
[2017-09-20 16:43] LABS: MEAN CELL VOLUME 86.9 fl (80-99); MEAN CORPUSCULAR HEMOGLOBIN 28.3 pg (26.0-30.0); MEAN CORPUSCULAR HGB CONC 32.6 pg (28.0-36.0); MEAN PLATELET VOLUME 7.1 fl; RED CELL DISTRIBUTION WIDTH 18.7 % (11.5-20.0)
[2017-09-20 16:44] LABS: INR 1.52 (0.5-1.4); PROTHROMBIN TIME (TEST) 16.1 SECONDS (9.5-11.5)
[2017-09-20 16:46] LABS: WHITE BLOOD COUNT 2.3 Th/cmm (4.8-10.8)
[2017-09-20 16:47] LABS: % LYMPHOCYTES 21.8 % (20.0-50.0); % NEUTROPHILS 65.2 % (40.0-80.0)
[2017-09-20 16:48] LABS: ALB/GLOB RATIO 1.1 (1.0-1.8); ALBUMIN 2.8 gm/dL (4.2-5.5); ALKALINE PHOSPHATASE 83 U/L (34-104); ANION GAP 13.2 (7.0-16.0); BILIRUBIN,TOTAL 3.3 mg/dL (0.3-1.0); BUN - UREA NITROGEN 10 mg/dL (7-25); CALCIUM SERUM 8.6 mg/dL (8.6-10.3); CARBON DIOXIDE 18.4 mEq/L (21.0-31.0); CHLORIDE 113 mEq/L (98-107); CREATININE - SERUM 0.5 mg/dL (0.7-1.3); EOSINOPHILE ABSOLUTE 0.1 Th/cmm (0.1-0.4); GFR AFRICAN-AMERICAN > 60.0 ml/min (>90); GFR NON AFRICAN-AMERICAN > 60.0 ml/min; GLUCOSE 82 mg/dL (70-105); LIPASE 11 U/L (11-82); LYMPHOCYTE ABSOLUTE 0.5 Th/cmm (1.5-3.0); MONOCYTE ABSOLUTE 0.2 Th/cmm (0.3-1.0); NEUTROPHILE ABSOLUTE 1.5 Th/cmm (1.8-8.0); POTASSIUM SERUM 3.6 mEq/L (3.5-5.1); SGOT 94 U/L (13-39); SGPT/ALT 41 U/L (7-52); SODIUM SERUM 141 mEq/L (136-145); TOTAL PROTEIN,SERUM 5.3 gm/dL (6.0-8.3)
[2017-09-20] MEDS ORDERED: Sodium Chloride 0.9% 1,000 ML IV ONE (17:27)
[2017-09-20] MEDS ORDERED: Morphine Sulfate 2 mg/mL 1mL Syr IV STA (17:28)
[2017-09-20] MEDS ORDERED: Levofloxacin 500mg/100mL 500 MG/100 ML BAG IV ONE ×2 (17:32→17:56)
[2017-09-20] MEDS ORDERED: Morphine Sulfate 2 mg/mL 1mL Syr ONE (17:56)
[2017-09-20 18:57] LABS: URINE MICROSCOPIC INDICATED? YES; URINE SOURCE RANDOM
[2017-09-20 18:59] LABS: URINE BILIRUBIN SMALL (NEGATIVE); URINE BLOOD MODERATE (NEGATIVE); URINE GLUCOSE (UA) NEGATIVE (NEGATIVE); URINE KETONE TRACE mg/dL (NEGATIVE); URINE LEUKOCYTE ESTERASE NEGATIVE (NEGATIVE); URINE NITRATE NEGATIVE (NEGATIVE); URINE PH 5.5 (4.6 - 8.0); URINE PROTEIN 30 mg/dL (NEGATIVE)
[2017-09-20 19:20] LABS: URINE CLARITY CLEAR (CLEAR); URINE COLOR YELLOW
[2017-09-20 19:22] LABS: URINE BACTERIA NONE SEEN /hpf (NONE SEEN); URINE EPITHELIAL CELLS NONE SEEN /lpf (FEW); URINE WBC NONE SEEN /hpf (0-5)
[2017-09-20 19:25] LABS: AMPHETAMINE URINE NEGATIVE (NEGATIVE); BARBITURATES URINE NEGATIVE (NEGATIVE); BENZODIAZEPINES QUAL URINE POSITIVE (NEGATIVE); CANNABINOID THC POSITIVE (NEGATIVE); COCAINE METABOLITE QUAL URINE NEGATIVE (NEGATIVE); METHADONE URINE NEGATIVE (NEGATIVE); METHAMPHETAMINES QUAL URINE NEGATIVE (NEGATIVE); OPIATES (MORPHINE) QUAL. URINE NEGATIVE (NEGATIVE); PHENCYCLIDINE (PCP) URINE NEGATIVE (NEGATIVE); TRICYCLICS (TCA) QUAL. URINE NEGATIVE (NEGATIVE)
--- NOTE | 2017-09-21 10:13 | Diagnostic Imaging Report ---
CHEST X-RAY: AP view INDICATION: Right chest wall pain COMPARISON: CT abdomen and pelvis on 09/21/2015 FINDINGS: Increased right basal lung markings are noted. Mild cardiomegaly is noted. No focal consolidation or effusions. Heart size is normal. Postsurgical changes of right upper quadrant are noted. Osseous structures are intact. IMPRESSION: Right basal atelectasis versus infiltrate, correlate clinically. Mild cardiomegaly.
--- NOTE | 2017-09-21 10:51 | Diagnostic Imaging Report ---
CT abdomen and pelvis without intravenous contrast Indication: Right upper quadrant pain Comparison: None, Technique: Axial images were obtained from the lung bases to the bilateral proximal femurs without IV contrast. Coronal reconstructions were made. total DLP: 503, CTDI8.2 FINDINGS: Hypoventilatory changes of the lung bases are noted. Evaluation of solid organs is limited due to lack of IV contrast. There is massive soft tissue density and mass lesions, along the posterior mediastinal region extending to the GE junction region. Cirrhotic liver is noted. No focal lesions. The patient is status post cholecystectomy. Splenomegaly is noted. No focal pancreatic lesions. No focal adrenal lesions. No evidence of hydronephrosis or nephrolithiasis. Distended urinary bladder is noted. Diverticulosis is noted without evidence of diverticulitis. Appendix is not well-visualized. Nonspecific fluid-filled loops of small bowel are noted. Prominent nodularities of the retroperitoneum are seen, indeterminate. Advanced degenerative changes of the lower lumbar spine are noted with large Schmorl's node seen along the superior endplate of the L4 vertebral body. Additional smaller Schmorl's nodes are seen in multiple levels. Anasarca noted. IMPRESSION: Large mass lesions seen along the mediastinum extending to GE junction region. Differential diagnosis includes large varices versus adenopathy. Recommend further assessment with CT with IV contrast. Additional prominent nodularities in the right retroperitoneum are noted which may represent prominent vessels or lymph nodes. Again CT with IV contrast would clarify. Cirrhotic liver. Splenomegaly Evidence of prior cholecystectomy. Nonspecific fluid-filled small bowel loops and a suggestion of areas of mild small bowel wall thickening which may reflect underlying inflammatory process. Diverticulosis without evidence of diverticulitis Diffuse anasarca.
== END 2017-09-20 19:58 | disposition home or self-care (01) ==
LOC: ER 15:15
DX: R22.2 Localized swelling, mass and lump, trunk (principal); D72.819 Decreased white blood cell count, unspecified; K74.60 Unspecified cirrhosis of liver; D53.9 Nutritional anemia, unspecified; D68.9 Coagulation defect, unspecified; F19.20 Other psychoactive substance dependence, uncomplicated; Z90.49 Acquired absence of other specified parts of digestive tract; Z88.0 Allergy status to penicillin
CPT/HCPCS: 36415-UA; 71045-TC; 80053-TC; 80307; 80320-TC; 81001-TC; 82140-TC; 82150-TC; 83605; 83690-TC; 85007-TC; 85025-TC; 85027-TC; 85379-TC; 85610-TC; 87086-90; 96375; J1956; J2270; J2405; J7030; Z7610

== ENCOUNTER 2018-01-02 18:12 | Emergency (ER) | payer MEDICARE, MEDICAID ==
--- NOTE | 2018-01-02 18:59 | ED Physician Chart ---
ED Chief Complaint/HPI - Patient Information Date Seen:: 01/02/18 Time Seen:: 18:35 Chief Complaint:: right "flank pain" History of Present Illness:: Patient has been drinking alcohol all day today. He presents to the emergency room complaining of right "flank" pain and points to his right rib cage. Allergies:: Allergies Allergy/AdvReac Type Severity Reaction Status Date / Time Penicillins Allergy Unknown HIVES Verified 03/02/17 06:53 Vitals:: Vital Signs - 8 hr 01/02/18 18:34 Temp 99.1 F HR 86 RR 17 BP 100/62 O2 Sat % 93 Family Medical History - Family Member Mother History Unknown: Yes ED Physical Exam - Physical Examination General/Constitutional: Awake, GCS 15, Non-toxic appearing Other Gen/Cons comments:: chronically ill appearing. Patient appears jaundiced. Glibly eating Skittles. Smell of alcohol on breath. Head: Atraumatic Eyes: Lids, conjuctiva normal, PERRL, EOMI Skin: No rash, No skin lesions, No ecchymosis, Well hydrated, No lymphadenopathy Other Skin comments:: jaundice ENMT: External ears, nose nl, Nasal exam nl, Lips, teeth, gums nl Neck: Nontender, Full ROM w/o pain, No JVD, No nuchal rigidity, No bruit, No mass, No stridor Respiratory: Nl effort/Exclusion, Clear to Auscultation, No Wheeze/Rhonchi/Rales Cardio Vascular: RRR, No murmur, gallop, rubs, NL S1 S2 GI: No tenderness/rebounding/guarding, No organomegaly, No hernia, Normal BS's, Nondistended, No mass/bruits, No McBurney tenderness Other comments:: subjective complaint of R rib pain, although the patient states that he has right flank pain. Misc: Normal back, No paraspinal tenderness ED Assessment - Assessment Assessment/Comments:: gave sign out to Dr. Leal about the positive CURES report of # [address] of [place] 10/ 325 on 12/15/2017. 7:42 p.m. Gave sign out that the urine is still pending on this man. Both the urine drug screen and UA> ED Septic Shock - . Is Septic Shock (SBP<90, OR Lactate>4 mmol\\L) present?: No - <6hrs of presentation: Vital Signs: Vital Signs - 8 hr 01/02/18 18:34 Temp 99.1 F HR 86 RR 17 BP 100/62 O2 Sat % 93 ED Reassessment (Disposition) - Diagnosis Diagnosis:: RIGHT FLANK PAIN, RIGHT RIB PAIN, ANEMIA, LOW MAGNESIUM, JAUNDICE, ALCOHOL INTOXICATION - Aftercare/Follow up Instructions Notes:: sign out given to Dr. Leal to check the urinalysis, urine drug screen and right rib series on this patient.
[2018-01-02 19:11] LABS: HEMATOCRIT 33.2 % (41.0-60); HEMOGLOBIN 11.2 gm/dL (12-16); MEAN CELL VOLUME 92.4 fl (80-99); MEAN CORPUSCULAR HGB CONC 33.6 pg (28.0-36.0); MEAN PLATELET VOLUME 7.7 fl; PLATELET COUNT 50 Th/cmm (150-400); RED CELL DISTRIBUTION WIDTH 18.5 % (11.5-20.0); WHITE BLOOD COUNT 4.4 Th/cmm (4.8-10.8)
[2018-01-02 19:24] LABS: ALKALINE PHOSPHATASE 124 U/L (34-104); ANION GAP 9.1 (7.0-16.0); BILIRUBIN,TOTAL 2.5 mg/dL (0.3-1.0); BUN - UREA NITROGEN 13 mg/dL (7-25); CALCIUM SERUM 8.6 mg/dL (8.6-10.3); CARBON DIOXIDE 23.4 mEq/L (21.0-31.0); CHLORIDE 111 mEq/L (98-107); CREATININE - SERUM 0.7 mg/dL (0.7-1.3); GFR AFRICAN-AMERICAN > 60.0 ml/min (>90); GFR NON AFRICAN-AMERICAN > 60.0 ml/min; GLUCOSE 188 mg/dL (70-105); MAGNESIUM 1.8 mg/dL (1.9-2.7); PHOSPHOROUS 2.9 mg/dL (2.5-5.0); POTASSIUM SERUM 4.5 mEq/L (3.5-5.1); SGOT 164 U/L (13-39); SGPT/ALT 50 U/L (7-52); SODIUM SERUM 139 mEq/L (136-145); TOTAL PROTEIN,SERUM 5.9 gm/dL (6.0-8.3)
[2018-01-02 19:37] LABS: BAND NEUTROPHILE 5 % (0-10); BASOPHIL 0 % (0-3); EOSINOPHIL 6 % (0-5); LYMPHOCYTE 18 % (20-50); MONOCYTE 5 % (2-10); NEUTROPHILS 65 % (40-80); PLATELET ESTIMATE DECREASED PLATELETS (NORMAL); TOTAL CELLS COUNTED 100
[2018-01-02] MEDS ORDERED: Multivitamin Inj 10 ML, Thiamine HCL 100 MG, Magnesium Sulfate 2 GM, Folic Acid 1 MG in... IV ONE (19:45)
[2018-01-02] MEDS ORDERED: Thiamine 100 mg/mL 2mL Vial ONE (20:04)
[2018-01-02] MEDS ORDERED: MAG SULFATE IV ONE (20:04)
[2018-01-02] MEDS ORDERED: Multivitamin Inj 10 mL Vial IV ONE (20:05)
[2018-01-02] MEDS ORDERED: Mag Sulfate 2gm/50mL Premix 2 GM/50 ML BAG IV ONE (20:19)
--- NOTE | 2018-01-03 10:34 | Diagnostic Imaging Report ---
Right RIBS (7 views) HISTORY: Pain No acute bony abnormalities are seen. No fractures. No acute focal pulmonary parenchymal processes. Heart size appears normal. Surgical clip seen in the right upper quadrant of the abdomen consistent with a prior cholecystectomy. IMPRESSION: No acute abnormalities
[2018-01-03 20:39] LABS: A1C % 4.2 % (4.0-6.0)
== END 2018-01-02 23:41 | disposition home or self-care (01) ==
LOC: ER 18:12
DX: R10.9 Unspecified abdominal pain (principal); R07.81 Pleurodynia; R17 Unspecified jaundice; F10.129 Alcohol abuse with intoxication, unspecified; D64.9 Anemia, unspecified; E61.2 Magnesium deficiency; Z88.0 Allergy status to penicillin
CPT/HCPCS: 36415-UA; 71101-TC-RT; 80053-TC; 80320-TC; 83036-90; 83735-TC; 84100-TC; 85007-TC; 85025-TC; 85027-TC; 96374; J1885; J3411; J3475; J7030; X6226; X6598